=== PATIENT | female | born 1945 | race Caucasian/White ===

== ENCOUNTER 2017-04-12 16:38 | Emergency (ER) | payer OTHER ==
[2017-04-12] VITALS (7 sets, daily range): BP systolic 145–154; BP diastolic 63–94; PULSE 58–73; RESP 16–20; TEMP 98; O2SAT 97–98
[~2017-04-12] VITALS: Ht 160 cm; Wt 70.0 kg
[2017-04-12] MEDS ORDERED: SODIUM CHLORIDE 0.9% FLUSH 10 ML FLUSH IVF PRN (17:00)
[2017-04-12] MEDS ORDERED: TRIAMCINOLONE ACETONIDE 40 MG/ML VIAL IM ONE (17:00)
--- NOTE | 2017-04-12 17:12 | PD ---
HPI Chief Complaint: Respiratory Symptoms Time Seen by Provider: 16:57 Travel History International Travel<30 days: No Contact w/Intl Traveler<30days: No Traveled to known affect area: No History of Present Illness HPI 72-year-old female patient with history of asthma, CAD status post CABG, hypertension presents to the ER today because she has had several days' history of coughing, shortness of breath. She denies any fevers, chest pains, or any other symptoms. She states that she thinks it was triggered when [place] and was exposed to cold. Modifying Factors: None Associated Signs & Symptoms: Shortness of breath, coughing Risk Factors: Asthma PFSH Past Medical History Hx Anticoagulant Therapy: Yes (BABY ASA ) Arthritis: Yes Asthma: Yes Anxiety: Yes Cardiac Catheterization: Yes Cardiovascular Problems: Yes ([place], OPEN HEART SX) High Cholesterol: Yes Chest Pain: Yes COPD: Yes Coronary Artery Disease: Yes Diabetes: No Hypertension: Yes Respiratory: Yes (ASTHMA, COPD) Myocardial Infarction: Yes Tetanus Vaccination: Unknown Influenza Vaccination: Yes ?: Not Past Surgical History Coronary Artery Bypass Graft: Yes (2 vessels) Hysterectomy: Yes Social History Alcohol Use: No Tobacco Use: No (quit 15 yrs ago smoked cigs) Substance Use: No Allergies-Medications (Allergen,Severity, Reaction): Coded Allergies: Prednisone (Verified Allergy, Intermediate, 04/12/17) Theophylline (Verified Allergy, Intermediate, 04/12/17) Reported Meds & Prescriptions Reported Meds & Active Scripts Active Reported Albuterol Neb (Albuterol Sulfate) 0.63 Mg/3 Ml Neb 0.63 Mg NEB Q4HR NEB PRN Ventolin Hfa 18 GM Inh (Albuterol Sulfate) 90 Mcg/Act Aer 2 Puff INH Q4-6H PRN Nitrostat SL (Nitroglycerin) 0.4 Mg Subl 0.4 Mg SL DIRECTED PRN 1 tablet under the tongue as needed for chest pain. Repeat every 5 minutes for a total of 3 DOSES or call 911 if NO relief. Carvedilol 6.25 Mg Tab 6.25 Mg PO DAILY Calcium 500+D (Calcium Carbonate-Cholecalciferol) 500-400 Mg-Unit Tab 1 Tab PO DAILY Aspir-81 (Aspirin) 81 Mg Tabdr 1 Tab PO DAILY Losartan (Losartan Potassium) 100 Mg Tab 100 Mg PO DAILY Lovastatin 40 Mg Tab 40 Mg PO HS Review of Systems Except as stated in HPI: all other systems reviewed are Neg Physical Exam Narrative GENERAL: Well-developed elderly white female patient currently in mild respiratory distress. SKIN: Focused skin assessment warm/dry. HEAD: Atraumatic. Normocephalic. EYES: Pupils equal and round. No scleral icterus. No injection or drainage. ENT: No nasal bleeding or discharge. Mucous membranes pink and moist. NECK: Trachea midline. No JVD. CARDIOVASCULAR: Regular rate and rhythm. No murmur appreciated. RESPIRATORY: No accessory muscle use. Decreased throughout. Breath sounds equal bilaterally. GASTROINTESTINAL: Abdomen soft, non-tender, nondistended. Hepatic and splenic margins not palpable. MUSCULOSKELETAL: No obvious deformities. No clubbing. No cyanosis. No edema. EXTREMITIES: No clubbing, cyanosis, or edema. No joint tenderness, effusion, or edema noted. No calf tenderness. Bilateral Homans sign negative. NEUROLOGICAL: Awake and alert. No obvious cranial nerve deficits. Motor grossly within normal limits. Normal speech. PSYCHIATRIC: Appropriate mood and affect; insight and judgment normal. Data Data Last Documented VS Vital Signs Date Time Temp Pulse Resp B/P Pulse Ox O2 Delivery O2 Flow Rate FiO2 04/12/17 17:17 98 21 04/12/17 17:09 62 18 148/66 Room Air 04/12/17 16:40 98.0 Orders Complete Blood Count With Diff (04/12/17 16:57) Basic Metabolic Panel (Bmp) (04/12/17 16:57) D-Dimer (04/12/17 16:57) Act Partial Throm Time (Ptt) (04/12/17 16:57) Prothrombin Time / Inr (Pt) (04/12/17 16:57) Iv Access Insert/Monitor (04/12/17 16:57) Ecg Monitoring (04/12/17 16:57) Oximetry (04/12/17 16:57) Oxygen Administration (04/12/17 16:57) Chest, Single Ap (04/12/17 16:57) Sodium Chloride 0.9% Flush (Ns Flush) (04/12/17 17:00) Albuterol-Ipratropium Neb (Duoneb Neb) (04/12/17 17:00) Triamcinolone Inj (Kenalog-40 Inj) (04/12/17 17:00) B-Type Natriuretic Peptide (04/12/17 17:12) Ventilation & Perfusion Scan (04/12/17 18:21) Duoneb X1 Dose (04/12/17 19:00) Labs Laboratory Tests Test 04/12/17 17:32 White Blood Count 7.8 TH/MM3 Red Blood Count 3.81 MIL/MM3 Hemoglobin 11.6 GM/DL Hematocrit 34.8 % Mean Corpuscular Volume 91.3 FL Mean Corpuscular Hemoglobin 30.5 PG Mean Corpuscular Hemoglobin 33.5 % Concent Red Cell Distribution Width 13.5 % Platelet Count 182 TH/MM3 Mean Platelet Volume 7.7 FL Neutrophils (%) (Auto) 72.2 % Lymphocytes (%) (Auto) 19.2 % Monocytes (%) (Auto) 5.0 % Eosinophils (%) (Auto) 2.0 % Basophils (%) (Auto) 1.6 % Neutrophils # (Auto) 5.6 TH/MM3 Lymphocytes # (Auto) 1.5 TH/MM3 Monocytes # (Auto) 0.4 TH/MM3 Eosinophils # (Auto) 0.2 TH/MM3 Basophils # (Auto) 0.1 TH/MM3 CBC Comment DIFF FINAL Differential Comment Prothrombin Time 10.4 SEC Prothromb Time International 0.9 RATIO Ratio Activated Partial 23.6 SEC Thromboplast Time D-Dimer Quantitative (PE/DVT) 0.93 MG/L FEU Sodium Level 143 MEQ/L Potassium Level 4.4 MEQ/L Chloride Level 111 MEQ/L Carbon Dioxide Level 25.7 MEQ/L Anion Gap 6 MEQ/L Blood Urea Nitrogen 22 MG/DL Creatinine 1.50 MG/DL Estimat Glomerular Filtration 34 ML/MIN Rate Random Glucose 144 MG/DL Calcium Level 8.8 MG/DL B-Type Natriuretic Peptide 249 PG/ML MDM Medical Decision Making Medical Screen Exam Complete: Yes Emergency Medical Condition: Yes Medical Record Reviewed: Yes Interpretation(s) Laboratory Tests Test 04/12/17 17:32 Red Blood Count 3.81 MIL/MM3 (4.00-5.30) Hematocrit 34.8 % (35.0-46.0) Neutrophils (%) (Auto) 72.2 % (16.0-70.0) Activated Partial 23.6 SEC Thromboplast Time (24.3-30.1) D-Dimer Quantitative (PE/DVT) 0.93 MG/L FEU (0.00-0.50) Chloride Level 111 MEQ/L (98-107) Blood Urea Nitrogen 22 MG/DL (7-18) Creatinine 1.50 MG/DL (0.50-1.00) Estimat Glomerular Filtration 34 ML/MIN (>89) Rate Random Glucose 144 MG/DL (74-106) B-Type Natriuretic Peptide 249 PG/ML (0-100) Last 24 hours Impressions Chest X-Ray 04/12/17 1657 Signed Impressions: Service Date/Time: April 17:07 - CONCLUSION: 1. No acute cardiopulmonary disease. Goldy Caicedo MD Differential Diagnosis Coughing, shortness of breathasthma exacerbation versus pneumonia versus bronchitis versus PE versus CHF Narrative Course Chest x-ray did not show any signs of acute processes. Patient was given a steroid which she states she could take, Kenalog, nebulizers. Lab work returns showing elevated d-dimer. VQ scan was also ordered for further evaluation. Patient's daughter had told me that the patient had been on a plane trip was 2 and [place] go [place] before symptoms started. On reevaluation at 6:45 PM, she is feeling improved but is still having significant wheezing bilaterally and additional nebulizer was ordered. Physician Communication Physician Communication Case is signed out at 7 PM to oncoming physician awaiting VQ scan. Disposition based on VQ. Diagnosis Primary Impression: Asthma exacerbation Med/Other Pt SpecificInfo: Prescription(s) given Condition: Stable Sd Seymour MD Apr 12, 2017 17:12
[2017-04-12] MEDS ORDERED: NITR0.4S SL (17:16)
[2017-04-12] MEDS ORDERED: LOSA100T PO (17:16)
[2017-04-12] MEDS ORDERED: VENTAER INH (17:16)
[2017-04-12] MEDS ORDERED: ALBU0.63 NEB (17:16)
[2017-04-12] MEDS ORDERED: CARV6.252 PO (17:16)
[2017-04-12] MEDS ORDERED: LOVA40TA PO (17:16)
[2017-04-12] MEDS ORDERED: ASPI81TA81 PO (17:16)
[2017-04-12] MEDS ORDERED: CALCTAB36 PO (17:16)
[2017-04-12] MEDS: RESP: ALBUTEROL 2.5 MG/IPRATROPIUM 0.5 MG NEB (SCH) INH (17:17)
--- NOTE | 2017-04-12 17:18 | RADHPO ---
EXAM DATE/TIME: 04/12/2017 17:07 [facility] COMPARISON: No previous studies available for comparison. INDICATIONS : Patient has been short of breath since this morning. She states she feels as if she is having an asth ma attacm MEDICAL HISTORY : None. SURGICAL HISTORY : CABG. ENCOUNTER: Initial ACUITY: 1 day PAIN SCORE: 0/10 LOCATION: Bilateral chest FINDINGS: Postsurgical features of prior median sternotomy and cardiac surgery. Cardiac silhouette is mildly en larged. Pulmonary vascularity is within normal limits. Lungs are clear. Bony thorax is intact. CONCLUSION: 1. No acute cardiopulmonary disease. Goldy Caicedo MD on April 12, 2017 at 17:16 Board Certified Radiologist. This report was verified electronically.
[2017-04-12 17:38] LABS: AUTOMATED NEUTROPHIL # 5.6 TH/MM3 (1.8-7.7); BASOPHIL # 0.1 TH/MM3 (0-0.2); BASOPHIL % 1.6 % (0.0-2.0); EOSINOPHIL # 0.2 TH/MM3 (0-0.4); HEMATOCRIT 34.8 % (35.0-46.0); HEMO FLAGS DIFF FINAL; LYMPH % 19.2 % (9.0-44.0); LYMPHOCYTE # 1.5 TH/MM3 (1.0-4.8); MEAN CELL VOLUME 91.3 FL (80.0-100.0); MEAN CORPUSCULAR HEMOGLOBIN 30.5 PG (27.0-34.0); MEAN CORPUSCULAR HGB CONC 33.5 % (32.0-36.0); NEUT % 72.2 % (16.0-70.0); PLATELET COUNT 182 TH/MM3 (150-450); RED BLOOD COUNT 3.81 MIL/MM3 (4.00-5.30); RED CELL DISTRIBUTION WIDTH 13.5 % (11.6-17.2); WHITE BLOOD COUNT 7.8 TH/MM3 (4.0-11.0)
[2017-04-12 17:45] LABS: POTASSIUM 4.4 MEQ/L (3.5-5.1)
[2017-04-12 17:48] LABS: BICARBONATE 25.7 MEQ/L (21.0-32.0)
[2017-04-12 17:53] LABS: APTT (PATIENT) 23.6 SEC (24.3-30.1); INTERNATIONAL NORMALIZED RATIO 0.9 RATIO; PROTHROMBIN TIME - PATIENT 10.4 SEC (9.8-11.6)
[2017-04-12] MEDS ORDERED: RESP: ALBUTEROL 2.5 MG/IPRATROPIUM 0.5 MG NEB (SCH) INH ONE (19:00)
--- NOTE | 2017-04-12 20:54 | RADHPO ---
EXAM DATE/TIME: 04/12/2017 19:57 [facility] COMPARISON: CHEST SINGLE AP, April 12, 2017, 17:07. INDICATIONS : Dyspnea with cough. History of recent air travel. DOSE: 1.22 mCi Tc99m DTPA 8.8 mCi Tc99m MAA MEDICAL HISTORY : Cardiovascular disease. Hypertension. Chronic obstructive pulmonary disease. Asthma. SURGICAL HISTORY : CABG ENCOUNTER: Initial ACUITY: 1 day PAIN SCALE: 0/10 LOCATION: chest TECHNIQUE: Following five minutes of tidal breathing of DTPA aerosol, planar images of the lungs were performed in eight projections. The patient was then injected with MAA, and eight-view perfusion scan was perf ormed. FINDINGS: No focal segmental or subsegmental perfusion mismatches are identified. Ventilation is grossly intact with significant swallowed tracer also noted. CONCLUSION: Low probability scan for pulmonary embolism Tu Nunez MD on April 12, 2017 at 20:51 Board Certified Radiologist. This report was verified electronically.
[2017-04-12] MEDS ORDERED: ALBUAER3 INH (21:17)
--- NOTE | 2017-04-12 21:18 | PD ---
Physical Exam Narrative Patient signed out to me by Dr. Seymour to follow up VQ scan and disposition the patient. Please see her documentation for complete details. Briefly, patient is a 72-year-old female with history of asthma, who comes in complaining of shortness of breath. This been going on for the past 3 or 4 days. She has been using a Proventil inhaler, without much relief. She was given DuoNeb nebs as well as steroids here. She reports feeling better. On exam, lungs are clear to auscultation. Data Data Last Documented VS Vital Signs Date Time Temp Pulse Resp B/P Pulse Ox O2 Delivery O2 Flow Rate FiO2 04/12/17 19:18 61 18 145/69 98 Room Air 04/12/17 19:18 21 04/12/17 16:40 98.0 Orders Complete Blood Count With Diff (04/12/17 16:57) Basic Metabolic Panel (Bmp) (04/12/17 16:57) D-Dimer (04/12/17 16:57) Act Partial Throm Time (Ptt) (04/12/17 16:57) Prothrombin Time / Inr (Pt) (04/12/17 16:57) Iv Access Insert/Monitor (04/12/17 16:57) Ecg Monitoring (04/12/17 16:57) Oximetry (04/12/17 16:57) Oxygen Administration (04/12/17 16:57) Chest, Single Ap (04/12/17 16:57) Sodium Chloride 0.9% Flush (Ns Flush) (04/12/17 17:00) Albuterol-Ipratropium Neb (Duoneb Neb) (04/12/17 17:00) Triamcinolone Inj (Kenalog-40 Inj) (04/12/17 17:00) B-Type Natriuretic Peptide (04/12/17 17:12) Ventilation & Perfusion Scan (04/12/17 18:21) Albuterol-Ipratropium Neb (Duoneb Neb) (04/12/17 19:00) Labs Laboratory Tests Test 04/12/17 17:32 White Blood Count 7.8 TH/MM3 Red Blood Count 3.81 MIL/MM3 Hemoglobin 11.6 GM/DL Hematocrit 34.8 % Mean Corpuscular Volume 91.3 FL Mean Corpuscular Hemoglobin 30.5 PG Mean Corpuscular Hemoglobin 33.5 % Concent Red Cell Distribution Width 13.5 % Platelet Count 182 TH/MM3 Mean Platelet Volume 7.7 FL Neutrophils (%) (Auto) 72.2 % Lymphocytes (%) (Auto) 19.2 % Monocytes (%) (Auto) 5.0 % Eosinophils (%) (Auto) 2.0 % Basophils (%) (Auto) 1.6 % Neutrophils # (Auto) 5.6 TH/MM3 Lymphocytes # (Auto) 1.5 TH/MM3 Monocytes # (Auto) 0.4 TH/MM3 Eosinophils # (Auto) 0.2 TH/MM3 Basophils # (Auto) 0.1 TH/MM3 CBC Comment DIFF FINAL Differential Comment Prothrombin Time 10.4 SEC Prothromb Time International 0.9 RATIO Ratio Activated Partial 23.6 SEC Thromboplast Time D-Dimer Quantitative (PE/DVT) 0.93 MG/L FEU Sodium Level 143 MEQ/L Potassium Level 4.4 MEQ/L Chloride Level 111 MEQ/L Carbon Dioxide Level 25.7 MEQ/L Anion Gap 6 MEQ/L Blood Urea Nitrogen 22 MG/DL Creatinine 1.50 MG/DL Estimat Glomerular Filtration 34 ML/MIN Rate Random Glucose 144 MG/DL Calcium Level 8.8 MG/DL B-Type Natriuretic Peptide 249 PG/ML MDM Supervised Visit with DEBI: No Narrative Course Patient is feeling better after treatment. VQ scan shows low risk for PE, no VQ mismatch. Patient is comfortable going home at this time. She is given a prescription for an albuterol inhaler. She has prednisone at home, and says she can only take minimal amount at a time otherwise she has hallucinations. She is advised to take the prednisone for the next 4 days. Advised follow-up with a primary care doctor. Advised to return to the ED as needed for any worsening symptoms. Diagnosis Primary Impression: Asthma exacerbation Patient Instructions: Asthma (ED), General Instructions Additional Instruction: Take your steroids for the next 4 days. Use the albuterol as needed for shortness of breath. Return to the ED as needed for any worsening symptoms . Scripts Albuterol 8.5 GM Inh (Proair Hfa 8.5 GM Inh)90 Mcg/Act Aer2 Puff INH Q4-6H PRN ( SHORTNESS OF BREATH) #1 INHALER Ref 0 108 mcg/actuation Prov:Ligia De Jesus MD 04/12/17 Disposition: 01 DISCHARGE HOME Condition: Stable Ligia De Jesus MD Apr 12, 2017 21:17
== END 2017-04-12 21:31 | disposition home or self-care (01) ==
LOC: PHED 16:38
DX: J45.901 Unspecified asthma with (acute) exacerbation (principal); I10 Essential (primary) hypertension
CPT/HCPCS: 71010; 78582; 80048; 83880; 85025; 85379; 85610; 85730; 94640; 94664; 96372; 99284; A9540; A9567; J3301